=== PATIENT | female | born 1945 | race Caucasian/White ===

== ENCOUNTER 2016-12-27 12:14 | Emergency (ER) | payer OTHER ==
[~2016-12-27] VITALS: Ht 167.6 cm; Wt 81.2 kg
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
[~2016-12-27 12:14] MED LIST: BACTRIM DS TABL1 TA1 PO; BENTYL10 MG PO; CERTAGEN PO; CIPRO PO; KEFLEX500 M2 PO; MUCINEX DM1 TAB.SR . PO; MULTI VITAMIN1 EACH PO; PREMARIN PATCH TOP; PREMARIN PO; ZITHROMAX
== END 2016-12-27 15:30 | disposition home or self-care (01) ==
LOC: CFTX 12:14 → CED 12:14 → CFTX 13:02
DX: S16.1XXA Strain of muscle, fascia and tendon at neck level, initial encounter (principal); Z88.0 Allergy status to penicillin; Z79.899 Other long term (current) drug therapy; V49.40XA Driver injured in collision with unspecified motor vehicles in traffic accident, initial encounter
CPT/HCPCS: 70450; 72125; 99284